=== PATIENT | female | born 1960 | race Caucasian/White ===

== ENCOUNTER 2016-07-12 11:27 | Emergency (ER) | payer SELFPAY ==
[2016-07-12] MEDS ORDERED: Morphine Sulfate 2 MG/ML SYRINGE ONE (11:44)
[2016-07-12] MEDS ORDERED: Ondansetron HCl/PF 4 MG/2 ML Vial ONE (11:44)
[2016-07-12] MEDS ORDERED: Hyoscyamine Sulfate SL 0.125 mg Tablet ONE ×2 (12:21→12:22)
[2016-07-12] MEDS ORDERED: Ketorolac Tromethamine 30 MG/ML VIAL ONE (12:21)
[2016-07-12 12:24] LABS: #Basophils 0.1 thou/uL (0.0-0.2); #Eosinphils 0.2 thou/uL (0.0-0.7); #Lymphocytes 1.9 thou/uL (1.20-3.40); #Monocytes 0.5 thou/uL (0.11-0.59); %Basophils 1.4 % (0.0-1.0); %Eosinophils 2.9 % (0.0-10.0); %Lymphocytes 24.6 % (21.0-51.0); %Monocytes 5.9 % (0.0-10.0); %Neutrophils 65.2 % (42.0-75.0); Hemoglobin 14.1 g/dL (12.0-16.0); Mean Corpuscular HGB CONC 33.6 g/dL (32.0-36.0); Mean Corpuscular Hemoglobin 29.2 pg (27.0-31.0); Mean Corpuscular Volume 86.9 fl (81.0-99.0); Mean Platelet Volume 8.5 fL (7.4-10.4); Platelet Count 250 thou/uL (130-400); RBC Distribution Width 12.3 % (11.5-14.5); Red Blood Cell (RBC) Count 4.84 mill/uL (4.20-5.40); White Blood Cell (WBC) Count 7.6 thou/uL (4.8-10.8)
[2016-07-12 12:29] LABS: ALT (SGPT) 51 U/L (0-55); AST (SGOT) 28 U/L (5-34); Albumin 3.9 g/dL (3.5-5.0); Alkaline Phosphatase 101 U/L (40-150); Amylase 74 U/L (25-125); Anion Gap 16 mmol/L (10-20); BUN (Urea Nitrogen) 5 mg/dL (9.8-20.1); Bilirubin, Total 0.5 mg/dL (0.2-1.2); CK (CPK) 85 U/L (29-168); Calc. Creatinine Clearance 0 mL/min (70-130); Carbon Dioxide 25 mmol/L (22-29); Chloride 104 mmol/L (98-107); Estimated GFR-MDRD Greater than 90; Globulin 3.6 g/dL (2.4-3.5); Glucose 92 mg/dL (70-105); Lipase 79 U/L (8-78); Potassium 4.2 mmol/L (3.5-5.1); Protein, Total 7.5 g/dL (6.0-8.3); Sodium 141 mmol/L (136-145)
[2016-07-12 12:36] LABS: CKMB 2.2 ng/mL (0-6.6); Troponin I Less than 0.010 ng/mL (< 0.028)
[2016-07-12 13:32] LABS: Bilirubin Negative (Negative); Blood, Urine Negative (Negative); Clarity Clear (Clear); Glucose, Urine (Dipstick) Negative (Negative); Leukocyte Negative (Negative); Nitrite Negative (Negative); Protein, Urine (Dipstick) Negative (Neg-Trace); Specific Gravity, Urine 1.015 (1.005-1.030); Urobilinogen 0.2 mg/dL (0.2-1.0)
--- NOTE | 2016-07-12 13:54 | RAD ---
PORTABLE CHEST: Date: 07/12/16 PROVIDED CLINICAL HISTORY: Chest pain. FINDINGS: Comparison with 07/03/13. The cardiac and mediastinal silhouette is within normal limits. No focal consolidation, pleural flui d, or pneumothorax apparent. IMPRESSION: No evidence for an acute cardiopulmonary process. POS: [facility]
[2016-07-12] MEDS ORDERED: Iopamidol 370 76% 100 ML VIAL ONE (14:19)
--- NOTE | 2016-07-12 14:21 | ERRECORD ---
[facility] EMERGENCY RECORD HPI ABDOMINAL PAIN (12:33 LLDO) CHIEF COMPLAINTS: Patient presents for evaluation of abdominal pain, Patient presents for evaluation of pt not having pain in chest but in the RUQ of the abdo with rad into the right flank and right scapula. HISTORIAN: History provided by patient. LOCATION FEMALE: Symptoms are localized. QUALITY: Pain is dull in nature, described as aching. SEVERITY: Maximum severity of symptoms severe, Currently symptoms are severe. TIME COURSE: Sudden onset of symptoms, Symptoms are constant, Symptoms are worsening. ASSOCIATED WITH FEMALE: No associated constipation, No associated diarrhea, No associated fever, No associated groin pain, No associated hematemesis, No associated hematuria, Associated with loss of appetite, No associated melena, Associated with nausea, No associated night sweats, No associated trauma, No associated recent travel, No associated urinary tract infection signs or symptoms, No associated vomiting, No associated vaginal discharge, No associated vaginal bleeding, No associated weight change. RELIEVED BY: Patient's condition relieved by nothing. EXACERBATED BY: Patient's condition exacerbated by movement. RISK FACTORS FEMALE: Ectopic risk factors:, not applicable for this patient, Abdominal aortic aneurysm risk factors, include age over 40 years, Coronary artery disease risk factors, include family history, include hypertension. ROS CONSTITUTIONAL: Historian reports fatigue, reports malaise. (12:39 LLDO) EYES: Negative eye review of systems, Historian denies eye pain, denies eye redness, denies eye discharge. (12:41 LLDO) ENT: Negative ears, nose, throat review of systems, Historian denies epistaxis, denies rhinorrhea, denies sinus pain, denies sore throat. (12:41 LLDO) CARDIOVASCULAR: Negative cardiovascular review of systems, Historian denies chest pain, no radiation, Historian denies diaphoresis, denies syncope. (12:41 LLDO) RESPIRATORY: Negative respiratory review of systems, Historian denies cough, denies shortness of breath, denies sputum. (12:41 LLDO) GI: Historian reports abdominal pain, reports anorexia, reports appetite changes, denies constipation, denies diarrhea, denies hematemesis, denies hematochezia, denies jaundice, denies melena, reports nausea, denies stool changes, denies vomiting. (12:39 LLDO) GENITOURINARY FEMALE: Negative genitourinary review of systems, Historian denies dysuria, denies frequency, denies urgency. (12:41 LLDO) MUSCULOSKELETAL: Negative musculoskeletal review of systems, &a-1R&a+25V*p+0X*[id number]*c202B*c15G*c2P*p-0X&a-25V&a+1R Name: Patricia Suarez : 1960 F56 MedRec: [id number] AcctNum: [id number] Prepared: Alicia Jul 12, 2016 20:02 by Interface Page 1 of 4 pMD [facility] EMERGENCY RECORD Historian denies arthralgias, denies back pain, denies injury, denies myalgias, denies neck pain. (12:41 LLDO) SKIN: Negative skin review of systems, Historian denies cellulitis, denies rash, denies skin changes, denies skin lesions. (12:41 LLDO) NEUROLOGIC: Negative neurologic review of systems, Historian denies confusion, denies dizziness, denies focal weakness, denies mental status changes. (12:41 LLDO) HEMO/LYMPHATIC: Normal hematologic/lymphatic system review, Historian denies abnormal blood clotting, denies gum bleeding, denies petechiae. (12:41 LLDO) ALLERGIC/IMMUNOLOGIC: Normal allergy/immunologic system review, Historian denies eczema, denies environmental allergies, denies food allergies. (12:41 LLDO) PSYCHIATRIC: Negative psychiatric review of systems, Historian denies alcohol abuse, denies anxiety, denies depression, denies drug abuse, denies hallucinations. (12:41 LLDO) NOTES: All systems reviewed, negative except as described above. (12:39 LLDO) PAST MEDICAL HISTORY MEDICAL HISTORY: No past medical history, Flu vaccine not up to date. (13:12 SFRE) FEMALE SURGICAL HISTORY: Patient has no surgical history. (13:12 SFRE) PSYCHIATRIC HISTORY: No previous psychiatric history. (13:12 SFRE) SOCIAL HISTORY: Patient drinks socially, Patient denies drug use, Patient currently uses tobacco, smokes cigarettes. (13:12 SFRE) NOTES: Nursing records reviewed, Agree with nursing records, Medication list reviewed. (12:41 LLDO) KNOWN ALLERGIES No Known Drug Allergies CURRENT MEDICATIONS No recorded medications VITAL SIGNS VITAL SIGNS: BP: 185/88, Pulse: 86, Resp: 20, Pain: 9 (Pressure), O2 sat: 99 on Room Air, Time: 07/12/2016 11:31. (11:31 SFRE) BP: 155/65, Pulse: 79, Resp: 18, Temp: 98.1 (Tympanic), Pain: 7, O2 sat: 95 on Room Air, Time: 07/12/2016 13:35. (13:35 SFRE) BP: 138/93, Pulse: 65, Resp: 18, Temp: 98.0 (Tympanic), O2 sat: 99 on Room Air, Time: 07/12/2016 14:00. (14:00 SFRE) BP: 114/73, Pulse: 70, Resp: 18, Temp: 98.0 (Tympanic), Pain: 3, O2 sat: 98 on Room Air, Time: 07/12/2016 14:28. (14:28 SFRE) BP: 137/84, Pulse: 71, Resp: 18, Temp: 98.1, Pain: 6, O2 sat: 98 on RA, Time: 07/12/2016 15:29. (15:29 SFRE) &a-1R&a+25V*p+0X*[id number]*c202B*c15G*c2P*p-0X&a-25V&a+1R Name: Patricia Suarez : 1960 F56 MedRec: [id number] AcctNum: [id number] Prepared: Alicia Jul 12, 2016 20:02 by Interface Page 2 of 4 pMD [facility] EMERGENCY RECORD PHYSICAL EXAM CONSTITUTIONAL: Vital Signs Reviewed, Patient afebrile, Pulse normal, Blood pressure, BP ELEVATED, Respiratory rate normal, Patient appears, uncomfortable, Patient appears, in moderate pain distress, Patient alert and oriented to person, place and time, Nursing notes reviewed. (12:39 LLDO) HEAD: Head exam normal, Head exam included findings of head atraumatic, normocephalic. (12:41 LLDO) EYES: Eye exam normal, Eye exam included findings of eyelids normal to inspection, Pupils equally round and reactive to light, Extraocular muscles intact. (12:41 LLDO) ENT: ENT exam normal, Ear exam normal, Nose exam normal. (12:41 LLDO) NECK: Neck exam normal, Neck exam included findings of normal range of motion, Trachea midline, no meningeal signs, no tenderness. (12:41 LLDO) RESPIRATORY CHEST: Respiratory and chest exam normal, Respiratory exam included findings of, Chest exam included findings of chest movement symmetrical, Chest expansion equal. (12:41 LLDO) CARDIOVASCULAR: Cardiovascular assessment normal, Cardiovascular exam included findings of heart rate regular rate and rhythm, Heart sounds normal. (12:41 LLDO) ABDOMEN FEMALE: Abdominal exam included findings of abdomen tender, to the right upper quadrant, severe intensity, Bowel sounds normal, Spleen normal, Distension present, Mass palpated, Pulsatile mass present, Peritoneal signs present, positive mann's. (12:39 LLDO) BACK: Back exam normal, Back exam included findings of normal inspection, range of motion normal. (12:41 LLDO) UPPER EXTREMITY: Upper extremity exam normal, Upper extremity exam included findings of inspection normal, Range of motion normal. (12:41 LLDO) LOWER EXTREMITY: Lower extremity exam normal, Lower extremity exam included findings of inspection normal, Range of motion normal. (12:41 LLDO) NEURO: Neuro exam normal, Neuro exam findings include patient oriented to person, place and time, Speech normal, Mj coma scale 15. (12:41 LLDO) SKIN: Skin exam normal, Skin exam included findings of skin warm, dry, and normal in color, no rash. (12:41 LLDO) PSYCHIATRIC: Psychiatric exam normal, Psychiatric exam included findings of patient oriented to person place and time, Normal affect. (12:41 LLDO) MEDICATION ADMINISTRATION SUMMARY &a-1R&a+25V*p+0X*p7225Q*c202B*c15G*c2P*p-0X&a-25V&a+1R Name: Patricia Suarez : 1960 F56 MedRec: [id number] AcctNum: [id number] Prepared: Alicia Jul 12, 2016 20:02 by Interface Page 3 of 4 pMD [facility] EMERGENCY RECORD Drug Name: Duramorph (PF), Dose Ordered: 4 mg, Route: IV Push, Status: Given, Time: 14:20 07/12/2016, Drug Name: Duramorph (PF), Dose Ordered: 6 mg, Route: IV Push, Status: Given, Time: 13:44 07/12/2016, Drug Name: Toradol injection, Dose Ordered: 30 mg, Route: IV Push, Status: Given, Time: 12:24 07/12/2016, Drug Name: Levsin/SL, Dose Ordered: 0.5 mg, Route: Sublingual, Status: Given, Time: 12:20 07/12/2016, Drug Name: Zofran intravenous, Dose Ordered: 8 mg, Route: IV Push, Status: Given, Time: 11:50 07/12/2016, Detailed record available in Medication Service section. DOCTOR NOTES (14:09 LLDO) TEXT: accepted by dr. johnson for [facility]. PROBLEM LIST No recorded problems DIAGNOSIS (14:10 LLDO) FINAL: PRIMARY: Cholelithiasis, ADDITIONAL: biliary colic. PRESCRIPTION No recorded prescriptions DISPOSITION PATIENT: Disposition Type: Transfer, Disposition: Transfer to [facility]. (14:10 LLDO) Disposition Transport: Ambulance, Condition: Good, Patient left the department. (15:33 LWAL) Frey: LLDO=MD Michele, Fer LWAL=JOSEP Serna, Sherry SFRE=JOSEP Thayer, Edith &a-1R&a+25V*p+0X*[id number]*c202B*c15G*c2P*p-0X&a-25V&a+1R Name: Patricia Suarez : 1960 F56 MedRec: [id number] AcctNum: [id number] Prepared: Alicia Jul 12, 2016 20:02 by Interface Page 4 of 4 pMD MTDD
--- NOTE | 2016-07-12 14:27 | PICIS ---
[facility] EMERGENCY RECORD TRIAGE ([place] Jul 12, 2016 11:31 SFRE) TRIAGE NOTES: CHEST PAIN THAT STARTED YESTERDAY. ([place] Jul 12, 2016 11:31 SFRE) PATIENT: NAME: Patricia Suarez, AGE: 56, GENDER: female, : Wed1960, TIME OF GREET: [place] Jul 12, 2016 11:27, PREFERRED LANGUAGE: [place], ETHNICITY: Not or , ECODE BILLING MAP: [facility], SSN: [id number], Zip Code: [address], KG WEIGHT: 61.23, PHONE: , , , PERSON ID: [id number], PCP: no pcp. ([place] Jul 12, 2016 11:31 SFRE) COMPLAINT: HIGH RISK COMPLAINT: CHEST PAIN. ([place] Jul 12, 2016 11:31 SFRE) ADMISSION: URGENCY: 3 Urgent, ADMISSION SOURCE: Home, TRANSPORT: Walk-in, BED: ED -02. ([place] Jul 12, 2016 11:31 SFRE) ASSESSMENT: Symptoms began 07/11/2016. (13:12 SFRE) PAIN: Patient complains of pain described as, sharp, shooting, stabbing, on a scale 0-10 patient rates pain as 10, Location RIGHT CHEST UNDER BREAST RADIATING AROUND TO RIGHT LATERAL BACK, Pain is constant, No aggravating factors, No relieving factors. (13:12 SFRE) IMMUNIZATIONS: Flu vaccine not up to date. (13:12 SFRE) SIRS SCORING: Heart Rate 55-109 (0), Temp range 96.8-101.1 (0), respiratory rate 12-24 (0), Mental Status altered: no (0). (13:12 SFRE) TRIAGE SCREENING: Patient denies suicidal ideation, Patient denies presence of domestic violence. (13:12 SFRE) PROVIDERS: TRIAGE NURSE: Edith Thayer RN. ([place] Jul 12, 2016 11:31 SFRE) VITAL SIGNS: BP 185/88, Pulse 86, Resp 20, Pain 9, (Pressure), O2 Sat 99, on Room Air, Time 07/12/2016 11:31. (11:31 SFRE) KNOWN ALLERGIES No Known Drug Allergies CURRENT MEDICATIONS No recorded medications VITAL SIGNS VITAL SIGNS: BP: 185/88, Pulse: 86, Resp: 20, Pain: 9 (Pressure), O2 sat: 99 on Room Air, Time: 07/12/2016 11:31. (11:31 SFRE) BP: 155/65, Pulse: 79, Resp: 18, Temp: 98.1 (Tympanic), Pain: 7, O2 sat: 95 on Room Air, Time: 07/12/2016 13:35. (13:35 SFRE) BP: 138/93, Pulse: 65, Resp: 18, Temp: 98.0 (Tympanic), O2 sat: 99 on Room Air, Time: 07/12/2016 14:00. (14:00 SFRE) BP: 114/73, Pulse: 70, Resp: 18, Temp: 98.0 (Tympanic), Pain: 3, O2 sat: 98 on Room Air, Time: 07/12/2016 14:28. (14:28 SFRE) BP: 137/84, Pulse: 71, Resp: 18, Temp: 98.1, Pain: 6, O2 sat: 98 on RA, Time: 07/12/2016 15:29. (15:29 SFRE) &a-1R&a+25V*p+0X*j7046D*c202B*c15G*c2P*p-0X&a-25V&a+1R Name: Patricia Suarez : 1960 F56 MedRec: [id number] AcctNum: [id number] Prepared: Alicia Jul 12, 2016 20:08 by Interface Page 1 of 12 pMD [facility] EMERGENCY RECORD NURSING ASSESSMENT: CARDIOVASCULAR (11:31 SFRE) CONSTITUTIONAL: Patient arrives ambulatory, Gait steady, History obtained from patient, Patient appears, in distress due to pain, Patient cooperative, Patient alert, Oriented to person, place and time, Skin warm, Skin dry, Skin normal in color, Mucous membranes pink, Mucous membranes moist, Patient is well-groomed, Patient complains of CHEST PAIN. PAIN: sharp pain, shooting pain, stabbing pain, to the right chest, Pain radiates, to the right back, Onset of pain 07/11/2016, constant, on a scale 0-10 patient rates pain as 9, Pain exacerbated by nothing, Nothing has been tried to alleviate the pain. CARDIOVASCULAR: Cardiovascular assessment findings include heart rate normal, Heart rhythm normal sinus. RESPIRATORY/CHEST: Breath sounds clear, Respiratory assessment findings include respiratory effort easy, Respirations regular, Conversing normally, Neck and chest exam findings include trachea midline, Chest expansion equal, Chest movement symmetrical, no associated cough noted, no associated fever. SAFETY: Side rails up, Cart/Stretcher in lowest position, Family at bedside, Call light within reach, Hospital ID band on. NURSING PROCEDURE: VEGETABLE CUTTER (11:31 SFRE) VEGETABLE CUTTER: Cardiac monitoring indicated for complaint of chest pain, Patient placed on front desk monitor, Heart rate: 86, showing normal sinus rhythm, Patient placed on non-invasive blood pressure monitor, Patient placed on continuous pulse oximetry, Adult/pediatric oxisensor applied, Oxygen saturation 99%. NURSING PROCEDURE: IV (11:31 SFRE) IV SITE 1: IV therapy indicated for hydration, IV therapy indicated for medication administration, IV established, to the right antecubital, using an 18 gauge catheter, in one attempt, Saline lock established, Flushed with normal saline (mls): 5CC, Labs drawn at time of placement, labeled in the presence of the patient and sent to lab. NURSING PROCEDURE: TRANSFER (15:29 SFRE) TRANSFER: Reason for transfer need for specialized care, Diagnosis: GALLSTONES/BILIARY COLIC, Accepting institution: [facility], Accepting physician: VENKATESH, Referring physician: YARELI, Transported by urgent ambulance, accompanied by emergency medical services personnel, Report called to receiving facility, JOSEP LAMAR, Provided opportunity to answer questions, Bed assigned ON ARRIVAL, Summary of Care printed, Copy of patient record prepared for receiving facility, Medication reconciliation form prepared and sent to receiving facility, Patient consent for transfer signed, Family member contacted, BS. &a-1R&a+25V*p+0X*s7025F*c202B*c15G*c2P*p-0X&a-25V&a+1R Name: Patricia Suarez : 1960 F56 MedRec: [id number] AcctNum: [id number] Prepared: Alicia Jul 12, 2016 20:08 by Interface Page 2 of 12 pMD [facility] EMERGENCY RECORD EQUIPMENT WITH PATIENT: Equipment with patient at time of transfer front desk monitor, Saline lock intact and patent at time of transfer. SAFETY: Side rails up, Cart/Stretcher in lowest position, Family at bedside, Call light within reach, Hospital ID band on. VITAL SIGNS: BP: 137, / 84, Pulse: 71, Resp: 18, Temp: 98.1, Pain: 6, O2 sat: 98, on: RA. ORDER DETAILS Order Name: Amylase, Status: Active, Time: 11:07/12/2016, User: NABEEL, - Ordered for: MD Bautista Lloyd, - Entered by: MD Bautista Lloyd - Sun Jul 12, 2016 11:41, - Quantity: 1, Order Name: B type Natriuretic Peptide, Status: Active, Time: :07/12/2016, User: NABEEL, - Ordered for: MD Bautista Lloyd, - Entered by: MD Bautista Lloyd - Sun Jul 12, 2016 11:42, - Quantity: 1, Order Name: VEGETABLE CUTTER ED, Status: Done, Time: 11:07/12/2016, User: THALIA, - Ordered for: MD Bautista Lloyd, - Entered by: MD Bautista Lloyd - Sun Jul 12, 2016 11:42, - Quantity: 1, Order Name: Cardiac Profile w/CKMB & Troponin - I, Status: Active, Time: 11:07/12/2016, User: NABEEL, - Ordered for: MD Bautista Lloyd, - Entered by: MD Bautista Lloyd - Sun Jul 12, 2016 11:41, - Quantity: 1, Order Name: CBC with Differential, Status: Active, Time: 11:07/12/2016, User: NABEEL, - Ordered for: MD Bautista Lloyd, - Entered by: MD Bautista Lloyd - Sun Jul 12, 2016 11:41, - Quantity: 1, Order Name: CK (CPK), Status: Active, Time: 11:42 07/12/2016, User: NABEEL, - Ordered for: MD Bautista Lloyd, - Entered by: MD Bautitsa Lloyd - Sun Jul 12, 2016 11:42, - Quantity: 1, Order Name: Comprehensive Metabolic Panel, Status: Active, Time: 11:07/12/2016, User: LLDO, - Ordered for: MD Bautista Lloyd, - Entered by: MD Bautista Lloyd - Alicia Jul 12, 2016 11:41, - Quantity: 1, Order Name: CT Abdomen Pelvis W Con, Status: Active, Time: 11:44 07/12/2016, User: LL, - Ordered for: MD Bautista Lloyd, - Entered by: MD Bautista Lloyd - Alicia Jul 12, 2016 11:44, - Quantity: 1, &a-1R&a+25V*p+0X*o6307E*c202B*c15G*c2P*p-0X&a-25V&a+1R Name: Patricia Suarez : 1960 F56 MedRec: [id number] AcctNum: [id number] Prepared: Alicia Jul 12, 2016 20:08 by Interface Page [address] [facility] EMERGENCY RECORD Order Name: Culture, Urine, Status: Active, Time: 11:41 07/12/2016, User: LLDO, - Ordered for: MD Bautista Lloyd, - Entered by: MD Bautista Lloyd - Alicia Jul 12, 2016 11:41, - Quantity: 1, Order Name: EKG 12 Lead in Emergency Room, Status: Active, Time: 11:42 07/12/2016, User: LLDO, - Ordered for: MD Bautista Lloyd, - Entered by: MD Bautista Lloyd - Alicia Jul 12, 2016 11:42, - Quantity: 1, Order Name: ERRT Oxygen Usage ER, Status: Active, Time: 11:42 07/12/2016, User: LLDO, - Ordered for: MD Bautista Lloyd, - Entered by: MD Bautista Lloyd - Sun Jul 12, 2016 11:42, - Quantity: 1, Order Name: ERRT Pulse Oximeter ER, Status: Active, Time: 11:42 07/12/2016, User: LLDO, - Ordered for: MD Bautista Lloyd, - Entered by: MD Bautista Lloyd - Sun Jul 12, 2016 11:42, - Quantity: 1, Order Name: Lipase, Status: Active, Time: 11:41 07/12/2016, User: LL, - Ordered for: MD Bautista Lloyd, - Entered by: MD Bautista Lloyd - Sun Jul 12, 2016 11:41, - Quantity: 1, Order Name: SALINE LOCK, Status: Done, Time: 11:43 07/12/2016, User: SFRE, - Ordered for: MD Bautista Lloyd, - Entered by: MD Bautista Lloyd - Sun Jul 12, 2016 11:42, - Quantity: 1, Order Name: Urinalysis w/ Rflx Microscopic, Status: Active, Time: 11:41 07/12/2016, User: LLDO, - Ordered for: MD Bautista Lloyd, - Entered by: MD Bautista Lloyd - Sun Jul 12, 2016 11:41, - Quantity: 1, Order Name: XR Chest 1 View Portable, Status: Active, Time: 11:41 07/12/2016, User: NABEEL, - Ordered for: MD Bautista Lloyd, - Entered by: MD Bautista Lloyd - Sun Jul 12, 2016 11:41, - Quantity: 1. MEDICATION ADMINISTRATION SUMMARY Drug Name: Duramorph (PF), Dose Ordered: 4 mg, Route: IV Push, Status: Given, Time: 14:20 07/12/2016, Drug Name: Duramorph (PF), Dose Ordered: 6 mg, Route: IV Push, Status: Given, Time: 13:44 07/12/2016, Drug Name: Toradol injection, Dose Ordered: 30 mg, Route: IV Push, Status: Given, Time: 12:24 07/12/2016, Drug Name: Levsin/SL, Dose Ordered: 0.5 mg, Route: Sublingual, &a-1R&a+25V*p+0X*j8839Z*c202B*c15G*c2P*p-0X&a-25V&a+1R Name: Patricia Suarez : 1960 F56 MedRec: [id number] AcctNum: [id number] Prepared: Alicia Jul 12, 2016 20:08 by Interface Page [address] [facility] EMERGENCY RECORD Status: Given, Time: 12:20 07/12/2016, Drug Name: Zofran intravenous, Dose Ordered: 8 mg, Route: IV Push, Status: Given, Time: 11:50 07/12/2016, Detailed record available in Medication Service section. MEDICATION SERVICE Duramorph (PF): Order: Duramorph (PF) (morphine sulfate/preservative free) - Dose: 6 mg : IV Push Schedule: Now Ordered by: Fer Bautista MD Entered by: Fer Bautista MD [place] Jul 12, 2016 11:40 , Acknowledged by: JOSEP Hough Jul 12, 2016 11:43 Documented as given by: Edith Thayer RN [place] Jul 12, 2016 13:44 Patient, Medication, Dose, Route and Time verified prior to administration. Amount given: 6MG, IV SITE #1 IVP, initial medication, Slowly, Awake and alert- acceptable, Catheter placement confirmed via flush prior to administration, IV site without signs or symptoms of infiltration during medication administration, No swelling during administration, No drainage during administration, IV flushed after administration, Correct patient, time, route, dose and medication confirmed prior to administration, Patient advised of actions and side-effects prior to administration, Allergies confirmed and medications reviewed prior to administration, Patient in position of comfort, Side rails up, Cart in lowest position, Family at bedside. Duramorph (PF): Order: Duramorph (PF) (morphine sulfate/preservative free) - Dose: 4 mg : IV Push Schedule: Now Ordered by: Fer Bautista MD Entered by: Fer Bautista MD [place] Jul 12, 2016 14:11 , Acknowledged by: JOSEP Hough Jul 12, 2016 14:14 Documented as given by: Edith Thayer RN [place] Jul 12, 2016 14:20 Patient, Medication, Dose, Route and Time verified prior to administration. Amount given: 4MG, IV SITE #1 IVP, repeat same medication, Slowly, Awake and alert- acceptable, Catheter placement confirmed via flush prior to administration, IV site without signs or symptoms of infiltration during medication administration, No swelling during administration, No drainage during administration, IV flushed after administration, Correct patient, time, route, dose and medication confirmed prior to administration, Patient advised of actions and side-effects prior to administration, Allergies confirmed and medications reviewed prior to administration, Patient in position of comfort, Side rails up, Cart in lowest position, Family at bedside. Levsin/SL: Order: Levsin/SL (hyoscyamine sulfate) - Dose: 0.5 mg : Sublingual Schedule: Now Ordered by: Fer Bautista MD Entered by: MD Alicia Scott Jul 12, 2016 11:40 , Acknowledged by: JOSEP Hough Jul 12, 2016 12:20 &a-1R&a+25V*p+0X*c2802N*c202B*c15G*c2P*p-0X&a-25V&a+1R Name: Patricia Suarez : 1960 F56 MedRec: [id number] AcctNum: [id number] Prepared: Alicia Jul 12, 2016 20:08 by Interface Page 5 of 12 pMD [facility] EMERGENCY RECORD Documented as given by: JOSEP Hough Jul 12, 2016 12:20 Patient, Medication, Dose, Route and Time verified prior to administration. Amount given: 0.5MG, Site: Medication administered S.L., Correct patient, time, route, dose and medication confirmed prior to administration, Patient advised of actions and side-effects prior to administration, Allergies confirmed and medications reviewed prior to administration, Patient in position of comfort, Side rails up, Cart in lowest position, Family at bedside. Toradol injection: Order: Toradol injection (ketorolac tromethamine) - Dose: 30 mg : IV Push Schedule: Now Ordered by: Fer Bautista MD Entered by: MD Alicia Scott Jul 12, 2016 11:40 , Acknowledged by: JOSEP Hough Jul 12, 2016 12:20 Documented as given by: JOSEP Hough Jul 12, 2016 12:24 Patient, Medication, Dose, Route and Time verified prior to administration. Amount given: 30MG, IV SITE #1 IVP, subsequent different medication, Awake and alert- acceptable, Catheter placement confirmed via flush prior to administration, IV site without signs or symptoms of infiltration during medication administration, No swelling during administration, No drainage during administration, IV flushed after administration, Correct patient, time, route, dose and medication confirmed prior to administration, Patient advised of actions and side-effects prior to administration, Allergies confirmed and medications reviewed prior to administration, Patient in position of comfort, Side rails up, Cart in lowest position, Family at bedside. Zofran intravenous: Order: Zofran intravenous (ondansetron HCl) - Dose: 8 mg : IV Push Schedule: Now Ordered by: Fer Bautista MD Entered by: MD Alicia Scott Jul 12, 2016 11:40 , Acknowledged by: JOSEP Hough Jul 12, 2016 11:43 Documented as given by: JOSEP Hough Jul 12, 2016 11:50 Patient, Medication, Dose, Route and Time verified prior to administration. Amount given: 8MG, IV SITE #1 IVP, initial medication, Slowly, Awake and alert- acceptable, Catheter placement confirmed via flush prior to administration, IV site without signs or symptoms of infiltration during medication administration, No swelling during administration, No drainage during administration, IV flushed after administration, Correct patient, time, route, dose and medication confirmed prior to administration, Patient advised of actions and side-effects prior to administration, Allergies confirmed and medications reviewed prior to administration, Patient in position of comfort, Side rails up, Cart in lowest position, Family at bedside. HPI ABDOMINAL PAIN (12:33 LLDO) CHIEF COMPLAINTS: Patient presents for evaluation of &a-1R&a+25V*p+0X*h0489E*c202B*c15G*c2P*p-0X&a-25V&a+1R Name: Patricia Suarez : 1960 F56 MedRec: [id number] AcctNum: [id number] Prepared: Alicia Jul 12, 2016 20:08 by Interface Page 6 of 12 pMD [facility] EMERGENCY RECORD abdominal pain, Patient presents for evaluation of pt not having pain in chest but in the RUQ of the abdo with rad into the right flank and right scapula. HISTORIAN: History provided by patient. LOCATION FEMALE: Symptoms are localized. QUALITY: Pain is dull in nature, described as aching. SEVERITY: Maximum severity of symptoms severe, Currently symptoms are severe. TIME COURSE: Sudden onset of symptoms, Symptoms are constant, Symptoms are worsening. ASSOCIATED WITH FEMALE: No associated constipation, No associated diarrhea, No associated fever, No associated groin pain, No associated hematemesis, No associated hematuria, Associated with loss of appetite, No associated melena, Associated with nausea, No associated night sweats, No associated trauma, No associated recent travel, No associated urinary tract infection signs or symptoms, No associated vomiting, No associated vaginal discharge, No associated vaginal bleeding, No associated weight change. RELIEVED BY: Patient's condition relieved by nothing. EXACERBATED BY: Patient's condition exacerbated by movement. RISK FACTORS FEMALE: Ectopic risk factors:, not applicable for this patient, Abdominal aortic aneurysm risk factors, include age over 40 years, Coronary artery disease risk factors, include family history, include hypertension. ROS CONSTITUTIONAL: Historian reports fatigue, reports malaise. (12:39 LLDO) EYES: Negative eye review of systems, Historian denies eye pain, denies eye redness, denies eye discharge. (12:41 LLDO) ENT: Negative ears, nose, throat review of systems, Historian denies epistaxis, denies rhinorrhea, denies sinus pain, denies sore throat. (12:41 LLDO) CARDIOVASCULAR: Negative cardiovascular review of systems, Historian denies chest pain, no radiation, Historian denies diaphoresis, denies syncope. (12:41 LLDO) RESPIRATORY: Negative respiratory review of systems, Historian denies cough, denies shortness of breath, denies sputum. (12:41 LLDO) GI: Historian reports abdominal pain, reports anorexia, reports appetite changes, denies constipation, denies diarrhea, denies hematemesis, denies hematochezia, denies jaundice, denies melena, reports nausea, denies stool changes, denies vomiting. (12:39 LLDO) GENITOURINARY FEMALE: Negative genitourinary review of systems, Historian denies dysuria, denies frequency, denies urgency. (12:41 LLDO) MUSCULOSKELETAL: Negative musculoskeletal review of systems, Historian denies arthralgias, denies back pain, denies injury, denies myalgias, denies neck pain. (12:41 LLDO) &a-1R&a+25V*p+0X*c9426G*c202B*c15G*c2P*p-0X&a-25V&a+1R Name: Patricia Suarez : 1960 F56 MedRec: [id number] AcctNum: [id number] Prepared: Alicia Jul 12, 2016 20:08 by Interface Page 7 of 12 pMD [facility] EMERGENCY RECORD SKIN: Negative skin review of systems, Historian denies cellulitis, denies rash, denies skin changes, denies skin lesions. (12:41 LLDO) NEUROLOGIC: Negative neurologic review of systems, Historian denies confusion, denies dizziness, denies focal weakness, denies mental status changes. (12:41 LLDO) HEMO/LYMPHATIC: Normal hematologic/lymphatic system review, Historian denies abnormal blood clotting, denies gum bleeding, denies petechiae. (12:41 LLDO) ALLERGIC/IMMUNOLOGIC: Normal allergy/immunologic system review, Historian denies eczema, denies environmental allergies, denies food allergies. (12:41 LLDO) PSYCHIATRIC: Negative psychiatric review of systems, Historian denies alcohol abuse, denies anxiety, denies depression, denies drug abuse, denies hallucinations. (12:41 LLDO) NOTES: All systems reviewed, negative except as described above. (12:39 LLDO) PAST MEDICAL HISTORY MEDICAL HISTORY: No past medical history, Flu vaccine not up to date. (13:12 SFRE) FEMALE SURGICAL HISTORY: Patient has no surgical history. (13:12 SFRE) PSYCHIATRIC HISTORY: No previous psychiatric history. (13:12 SFRE) SOCIAL HISTORY: Patient drinks socially, Patient denies drug use, Patient currently uses tobacco, smokes cigarettes. (13:12 SFRE) NOTES: Nursing records reviewed, Agree with nursing records, Medication list reviewed. (12:41 LLDO) PHYSICAL EXAM CONSTITUTIONAL: Vital Signs Reviewed, Patient afebrile, Pulse normal, Blood pressure, BP ELEVATED, Respiratory rate normal, Patient appears, uncomfortable, Patient appears, in moderate pain distress, Patient alert and oriented to person, place and time, Nursing notes reviewed. (12:39 LLDO) HEAD: Head exam normal, Head exam included findings of head atraumatic, normocephalic. (12:41 LLDO) EYES: Eye exam normal, Eye exam included findings of eyelids normal to inspection, Pupils equally round and reactive to light, Extraocular muscles intact. (12:41 LLDO) ENT: ENT exam normal, Ear exam normal, Nose exam normal. (12:41 LLDO) NECK: Neck exam normal, Neck exam included findings of normal range of motion, Trachea midline, no meningeal signs, no tenderness. (12:41 LLDO) RESPIRATORY CHEST: Respiratory and chest exam normal, Respiratory exam included findings of, Chest exam included &a-1R&a+25V*p+0X*z8120H*c202B*c15G*c2P*p-0X&a-25V&a+1R Name: Patricia Suarez : 1960 F56 MedRec: [id number] AcctNum: [id number] Prepared: Alicia Jul 12, 2016 20:08 by Interface Page 8 of 12 pMD [facility] EMERGENCY RECORD findings of chest movement symmetrical, Chest expansion equal. (12:41 LLDO) CARDIOVASCULAR: Cardiovascular assessment normal, Cardiovascular exam included findings of heart rate regular rate and rhythm, Heart sounds normal. (12:41 LLDO) ABDOMEN FEMALE: Abdominal exam included findings of abdomen tender, to the right upper quadrant, severe intensity, Bowel sounds normal, Spleen normal, Distension present, Mass palpated, Pulsatile mass present, Peritoneal signs present, positive mann's. (12:39 LLDO) BACK: Back exam normal, Back exam included findings of normal inspection, range of motion normal. (12:41 LLDO) UPPER EXTREMITY: Upper extremity exam normal, Upper extremity exam included findings of inspection normal, Range of motion normal. (12:41 LLDO) LOWER EXTREMITY: Lower extremity exam normal, Lower extremity exam included findings of inspection normal, Range of motion normal. (12:41 LLDO) NEURO: Neuro exam normal, Neuro exam findings include patient oriented to person, place and time, Speech normal, Mj coma scale 15. (12:41 LLDO) SKIN: Skin exam normal, Skin exam included findings of skin warm, dry, and normal in color, no rash. (12:41 LLDO) PSYCHIATRIC: Psychiatric exam normal, Psychiatric exam included findings of patient oriented to person place and time, Normal affect. (12:41 LLDO) EVENTS TRANSFER: Triage to Emergency Main ED -02. (Alicia Jul 12, 2016 11:31 SFRE) Removed from Emergency Main ED -02. (15:33 LWAL) DOCTOR NOTES (14:09 LLDO) TEXT: accepted by dr. johnson for [facility]. PROBLEM LIST No recorded problems DIAGNOSIS (14:10 LLDO) FINAL: PRIMARY: Cholelithiasis, ADDITIONAL: biliary colic. DISPOSITION PATIENT: Disposition Type: Transfer, Disposition: Transfer to [facility]. (14:10 LLDO) Disposition Transport: Ambulance, Condition: Good, Patient left the department. (15:33 LWAL) PRESCRIPTION &a-1R&a+25V*p+0X*f9940I*c202B*c15G*c2P*p-0X&a-25V&a+1R Name: Patricia Suarez : 1960 F56 MedRec: [id number] AcctNum: [id number] Prepared: Alicia Jul 12, 2016 20:08 by Interface Page 9 of 12 pMD [facility] EMERGENCY RECORD No recorded prescriptions IMAGING *EKG: Image captured from scanner. (13:25 SFRE) *MEMORANDUM OF TRANSFER: Image captured from scanner. (15:32 LWAL) EMS TRANSPORT ORDERS: Image captured from scanner. (15:32 LWAL) CONSENTS: Image captured from scanner. (15:32 LWAL) TRANSFER QI WORKSHEET: Image captured from scanner. (15:32 LWAL) Page 2 added. Image captured from scanner. (15:33 LWAL) TRANSFER PACKET: Image captured from scanner. (15:44 SFRE) Page 2 added. Image captured from scanner. (15:45 SFRE) *SUPPLY CHARGE SHEET: Image captured from scanner. (15:45 SFRE) ADMIN DIGITAL SIGNATURE: MD Bautista Lloyd. (14:11 LLDO) MD Bautista Lloyd. (19:56 LLDO) RESULTS (13:59 LWAL) LABORATORY: Urinalysis w/ Rflx Microscopic Collection DT: Alicia Jul 12, 2016 13:38, Color Yellow , Range (Yellow), Clarity Clear , Range (Clear), Specific [place], Urine 1.015 , Range (1.005-1.030), pH, Urine 7.0 , Range (5.0-9.0), Leukocyte Negative , Range (Negative), Nitrite Negative , Range (Negative), Protein, Urine (Dipstick) Negative mg/dL, Range (Neg-Trace), Glucose, Urine (Dipstick) Negative mg/dL, Range (Negative), Ketone, Urine Negative mg/dL, Range (Negative), Urobilinogen 0.2 mg/dL, Range (0.2-1.0), Bilirubin Negative , Range (Negative), Blood, Urine Negative , Range (Negative). B type Natriuretic Peptide Collection DT: WedJul 12, 2016 12:08, *B type Natriuretic Peptide 110.8 - H pg/mL, Range (0-100). Cardiac Profile w/CKMB & TropI Collection DT: WedJul 12, 2016 12:08, CKMB 2.2 ng/mL, Range (0-6.6), Troponin I Less than 0.010 ng/mL, Range (< 0.028), Reference Range , 0.00 - 0.028 ng/mL Negative 0.029 - 0.29 ng/mL , Indeterminate Greater or Equal to 0.3 ng/mL Strongly suggests [place] , . Lipase Collection DT: WedJul 12, 2016 12:08, *Lipase 79 - H U/L, Range (8-78). Amylase Collection DT: WedJul 12, 2016 12:08, Amylase 74 U/L, Range (25-125). CK (CPK) Collection DT: WedJul 12, 2016 12:08, CK (CPK) 85 U/L, Range (29-168). &a-1R&a+25V*p+0X*n7333M*c202B*c15G*c2P*p-0X&a-25V&a+1R Name: Patricia Suarez : 1960 F56 MedRec: [id number] AcctNum: [id number] Prepared: WedJul 12, 2016 20:08 by Interface Page 10 of 12 pMD [facility] EMERGENCY RECORD Comprehensive Metabolic Panel Collection DT: WedJul 12, 2016 12:08, Sodium 141 mmol/L, Range (136-145), Potassium 4.2 mmol/L, Range (3.5-5.1), Chloride 104 mmol/L, Range (98-107), Carbon Dioxide 25 mmol/L, Range (22-29), Anion Gap 16 mmol/L, Range (10-20), *BUN (Urea Nitrogen) 5 - L mg/dL, Range (9.8-20.1), Creatinine 0.66 mg/dL, Range (0.6-1.1), Estimated GFR-MDRD Greater than 90 , Reference Range for Estimated GFR: Greater than 90, mL/min/1.73 m2 NOTE: The MDRD equation has not been validated for use, with the elderly (over 70 years of age), women, patients with, serious comorbid condition or persons with extremes of body size, muscle, mass, or nutritional status. , Glucose 92 mg/dL, Range (70-105), Calcium 9.0 mg/dL, Range (7.8-10.44), Bilirubin, Total 0.5 mg/dL, Range (0.2-1.2), Protein, Total 7.5 g/dL, Range (6.0-8.3), NOTE: Plasma values are generally 0.3 to 0.5 g/dL higher than serum values, due to the presence of fibrinogen. , Albumin 3.9 g/dL, Range (3.5-5.0), *Globulin 3.6 - H g/dL, Range (2.4-3.5), *Alb/Glob Ratio 1.1 - L g/dL, Range (1.2-2.2), Alkaline Phosphatase 101 U/L, Range (40-150), AST (SGOT) 28 U/L, Range (5-34), ALT (SGPT) 51 U/L, Range (0-55). CBC with Differential Collection DT: Alicia Jul 12, 2016 12:08, White Blood Cell (WBC) Count 7.6 thou/uL, Range (4.8-10.8), Red Blood Cell (RBC) Count 4.84 mill/uL, Range (4.20-5.40), Hemoglobin 14.1 g/dL, Range (12.0-16.0), Hematocrit 42.0 %, Range (36.0-47.0), Mean Corpuscular Volume 86.9 fl, Range (81.0-99.0), Mean Corpuscular Hemoglobin 29.2 pg, Range (27.0-31.0), Mean Corpuscular HGB CONC 33.6 g/dL, Range (32.0-36.0), RBC Distribution Width 12.3 %, Range (11.5-14.5), Platelet Count 250 thou/uL, Range (130-400), Mean Platelet Volume 8.5 fL, Range (7.4-10.4), %Neutrophils 65.2 %, Range (42.0-75.0), %Lymphocytes 24.6 %, Range (21.0-51.0), %Monocytes 5.9 %, Range (0.0-10.0), %Eosinophils 2.9 %, Range (0.0-10.0), *%Basophils 1.4 - H %, Range (0.0-1.0), #Neutrophils 5.0 thou/uL, Range (1.40-6.50), #Lymphocytes 1.9 thou/uL, Range (1.20-3.40), #Monocytes 0.5 thou/uL, Range (0.11-0.59), #Eosinphils 0.2 thou/uL, Range (0.0-0.7), #Basophils 0.1 thou/uL, Range (0.0-0.2). &a-1R&a+25V*p+0X*n8379Z*c202B*c15G*c2P*p-0X&a-25V&a+1R Name: Patricia Suarez : 1960 [facility] MedRec: [id number] AcctNum: [id number] Prepared: Alicia Jul 12, 2016 20:08 by Interface Page 11 of 12 pMD [facility] EMERGENCY RECORD Frey: LLDO=MD Yareli, Fer GOMEZ=JOSEP Serna, Sherry WALLSE=JOSEP Thayer, Edith &a-1R&a+25V*p+0X*[id number]*c202B*c15G*c2P*p-0X&a-25V&a+1R Name: Patricia Suarez : 1960 6 MedRec: [id number] AcctNum: [id number] Prepared: Alicia Jul 12, 2016 20:08 by Interface Page 12 of 12 pMD MTDD
--- NOTE | 2016-07-12 15:11 | CT ---
CT OF THE ABDOMEN AND PELVIS WITH IV CONTRAST: Date: 07/12/16 INDICATION: Left upper quadrant abdominal pain. CONTRAST: 90 mL of Isovue-370 administered. COMPARISON: None. FINDINGS: Lung bases are clear. There are numerous gallstones within the gallbladder; however, no CT evidence to suggest acute troy cystitis. Visualized pancreas, spleen, and adrenal glands are normal appearing. There are small cysts within t he superior pole of the left kidney. There is a normal appendix in the right lower quadrant. There is a tiny dystrophic type calcification within the left adnexa which is nonspecific. Rectum an d perirectal soft tissues are unremarkable. Small and large bowel are unremarkable. There are shotty appearing lymph nodes within the upper abdomen which are nonspecific, but none art pathologically enlarged based on size criteria. There are scattered degenerative and osteoarthritic changes. IMPRESSION: 1. No CT explanation for the patient's right upper quadrant abdominal pain. 2. Cholelithiasis without overt CT evidence of acute cholecystitis. If there is further clinical co ncern, a right upper quadrant ultrasound may be helpful. 3. Small left renal cyst. 4. Nonspecific shotty appearing lymph nodes within the upper abdomen, none of which reach pathologi c size criteria. 5. Normal appendix. 6. Nonspecific dystrophic type calcification within the left adnexa. POS: [facility]
== END 2016-07-12 15:22 | disposition short-term general hospital (02) ==
LOC: MADERS 11:27
DX: K80.70 Calculus of gallbladder and bile duct without cholecystitis without obstruction (principal); F17.210 Nicotine dependence, cigarettes, uncomplicated
CPT/HCPCS: 36415; 71010; 74177; 80053; 81003; 82150; 82553; 83690; 83880; 84484; 85025; 87086; 93005; 94760; 96374; 96375; 96376; J1885; J2270; J2405